=== PATIENT | male | born 1990 | race Caucasian/White ===

== ENCOUNTER 2018-12-18 06:49 | Emergency (ER) | payer MEDICAID ==
[~2018-12-18] VITALS: Ht 180.3 cm; Wt 120.2 kg
[2018-12-18 06:53] VITALS: Ht 180.3 cm; Wt 120.2 kg
[2018-12-18 07:40] LABS: BASOPHIL % 0.6 % (0-2); PLATELET COUNT 235 x10^3mcL (130-400); RED CELL DISTRIBUTION WIDTH 12.4 % (11.5-14.5)
[2018-12-18 07:49] LABS: CALCIUM 9.5 mg/dL (8.5-10.1); CARBON DIOXIDE 27.1 mmol/L (21-32); CHLORIDE SERUM 102 mmol/L (98-107); CREATININE SERUM 1.1 mg/dL (0.7-1.3); GFR1 > 60 mL/min; GLUCOSE SERUM 111 mg/dL (74-106); POTASSIUM SERUM 3.9 mmol/L (3.5-5.1); SODIUM SERUM 138 mmol/L (136-145)
[2018-12-18 07:53] LABS: ALBUMIN 4.2 g/dL (3.4-5.0); ALKALINE PHOSPHATASE 99 U/L (46-116); ALT/SGPT 37 U/L (16-63); AST/SGOT 24 U/L (15-37); BILIRUBIN TOTAL 0.47 mg/dL (0.20-1.00); TOTAL PROTEIN, SERUM 8.1 g/dL (6.4-8.2)
[2018-12-18 08:32] LABS: AMPHETAMINE QUAL UR POSITIVE (See below)
[2018-12-18 10:03] VITALS: BP 135/77
== END 2018-12-18 10:08 | disposition home or self-care (01) ==
LOC: ED 06:49
PROVIDERS: Specialist
DX: R07.89 Other chest pain (principal); F15.20 Other stimulant dependence, uncomplicated; R05 Cough
CPT/HCPCS: 83880; G0480; J1885; J7030; Q0092